=== PATIENT | male | born 1980 | race Caucasian/White ===

== ENCOUNTER 2020-09-02 16:19 | Emergency (ER) | payer OTHER ==
[~2020-09-02] VITALS: Ht 182.9 cm; Wt 104.3 kg
[~2020-09-02 16:19] MED LIST: AMOXICILLIN500 M1 PO; PROAIR HFA8.5 GM INH; TESSALON PERLE100 MG PO
== END 2020-09-02 19:13 | disposition home or self-care (01) ==
LOC: ED 16:19
DX: N35.911 Unspecified urethral stricture, male, meatal (principal); F17.200 Nicotine dependence, unspecified, uncomplicated
CPT/HCPCS: 51702; 51798; 81001; 99283-25

== ENCOUNTER 2020-11-27 07:24 | Emergency (ER) | payer OTHER ==
[~2020-11-27] VITALS: Ht 182.9 cm; Wt 104.3 kg
[2020-11-27] MEDS ORDERED: CELEXA10 MG PO (07:50)
[2020-11-27] MEDS ORDERED: TRAZODONE HCL50 MG (07:52)
== END 2020-11-27 08:46 | disposition home or self-care (01) ==
LOC: ED 07:24
DX: T65.891A Toxic effect of other specified substances, accidental (unintentional), initial encounter (principal); F17.200 Nicotine dependence, unspecified, uncomplicated; Z79.899 Other long term (current) drug therapy
CPT/HCPCS: 99282

== ENCOUNTER 2020-12-06 21:40 | Emergency (ER) | payer OTHER ==
[~2020-12-06] VITALS: Ht 182.9 cm; Wt 104.3 kg
[~2020-12-06 21:40] MED LIST changes: +CELEXA10 MG PO; +TRAZODONE HCL50 MG
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
== END 2020-12-07 01:31 | disposition home or self-care (01) ==
LOC: ED 21:40
DX: S39.012A Strain of muscle, fascia and tendon of lower back, initial encounter (principal); S16.1XXA Strain of muscle, fascia and tendon at neck level, initial encounter; S29.012A Strain of muscle and tendon of back wall of thorax, initial encounter; V49.50XA Passenger injured in collision with unspecified motor vehicles in traffic accident, initial encounter; F17.200 Nicotine dependence, unspecified, uncomplicated; Z79.899 Other long term (current) drug therapy
CPT/HCPCS: 72125; 72128; 72131; 96372; 99284-25; J1885

== ENCOUNTER 2021-06-23 03:26 | Emergency (ER) | payer OTHER ==
[~2021-06-23] VITALS: Ht 182.9 cm; Wt 104.6 kg
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
== END 2021-06-23 04:11 | disposition home or self-care (01) ==
LOC: ED 03:26
DX: K62.5 Hemorrhage of anus and rectum (principal); G47.00 Insomnia, unspecified; F17.200 Nicotine dependence, unspecified, uncomplicated
CPT/HCPCS: 99283

== ENCOUNTER 2022-02-27 01:03 | Emergency (ER) | payer OTHER ==
[~2022-02-27] VITALS: Ht 182.9 cm; Wt 102.1 kg
--- OUTSIDE RECORDS SUMMARY | 2022-02-27 01:06 | XMS ---
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 - Patient with suicidal and/or homicidal ideations eloped. - Patient eloped with IV in place. Details: PATIENT LWBS CRITERIA MET - Group Notification CARE PROVIDERS ROQUE DAVIES Physician Current PHONE: [phone] Care Guidelines exist for the following facilities: [facility] ( 11/20/2018 ) Justine VISIT COUNT (12 MO.) [facility] [address] TOTAL 8 NOTE: Visits indicate total known visits. ED/UCC VISIT TRACKING (12 MO.) 02/27/2022 01:04 [facility] [place] TYPE: Emergency COMPLAINT: - CANT URINATE 09/30/2021 09:37 [facility] [place] TYPE: Emergency COMPLAINT: - L RING FINGER SWOLLEN 09/29/2021 16:52 [facility] [place] TYPE: Emergency COMPLAINT: - SKIN PROBLEM 08/27/2021 08:44 [facility] [place] TYPE: Emergency DIAGNOSES: - Nondisplaced fracture of right radial styloid process, subsequent encounter for closed fracture with routine healing - LEFT ARM AND WRIST RECHECK 08/20/2021 15:28 [facility] [place] TYPE: Emergency DIAGNOSES: - Nondisplaced fracture of right radial styloid process, initial encounter for closed fracture - Fall (on) (from) other stairs and steps, initial encounter - PAIN LEFT SIDE HEAD RADIATES DOWN TO HIP 06/23/2021 03:28 [facility] [place] TYPE: Emergency COMPLAINT: - RECTAL BLEEDING DIAGNOSES: - Hemorrhage of anus and rectum - Nicotine dependence, unspecified, uncomplicated - Insomnia, unspecified 04/04/2021 11:36 [facility] [place] TYPE: Emergency DIAGNOSES: - R INDEX FINGER INJURY - Laceration with foreign body of right index finger without damage to nail, initial encounter 03/31/2021 11:23 [facility] [place] TYPE: Emergency DIAGNOSES: - Toxic effect of venom of other arthropod, accidental (unintentional), initial encounter - RASH INPATIENT VISIT TRACKING (12 MO.) No inpatient visits to display in this time frame [id number]
[2022-02-27] MEDS ORDERED: FLOMAX0.4 MG PO (03:07)
== END 2022-02-27 03:35 | disposition home or self-care (01) ==
LOC: ED 01:03
DX: R39.11 Hesitancy of micturition (principal); F17.200 Nicotine dependence, unspecified, uncomplicated
CPT/HCPCS: 51798; 81001; 99283-25

== ENCOUNTER 2022-04-22 17:14 | Emergency (ER) | payer OTHER ==
[~2022-04-22] VITALS: Ht 182.9 cm; Wt 106.8 kg
[~2022-04-22 17:14] MED LIST changes: +FLOMAX0.4 MG PO
--- OUTSIDE RECORDS SUMMARY | 2022-04-22 17:22 | XMS ---
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 - Patient with suicidal and/or homicidal ideations eloped. - Patient eloped with IV in place. Details: PATIENT LWBS CRITERIA MET - Group Notification CARE PROVIDERS ROQUE DAVIES Physician Current PHONE: [phone] Care Guidelines exist for the following facilities: [facility] ( 11/20/2018 ) Justine VISIT COUNT (12 MO.) [address] TOTAL 7 NOTE: Visits indicate total known visits. ED/UCC VISIT TRACKING (12 MO.) 04/22/2022 17:14 [facility] [place] TYPE: Emergency COMPLAINT: - CHEST PAIN 02/27/2022 01:04 [facility] [place] TYPE: Emergency COMPLAINT: - CANT URINATE DIAGNOSES: - Hesitancy of micturition - Nicotine dependence, unspecified, uncomplicated 09/30/2021 09:37 [facility] [place] TYPE: Emergency COMPLAINT: - L RING FINGER SWOLLEN 09/29/2021 16:52 [facility] [place] TYPE: Emergency COMPLAINT: - SKIN PROBLEM 08/27/2021 08:44 [facility] [place] TYPE: Emergency DIAGNOSES: - LEFT ARM AND WRIST RECHECK - Nondisplaced fracture of right radial styloid process, subsequent encounter for closed fracture with routine healing 08/20/2021 15:28 [facility] [place] TYPE: Emergency DIAGNOSES: - Fall (on) (from) other stairs and steps, initial encounter - PAIN LEFT SIDE HEAD RADIATES DOWN TO HIP - Nondisplaced fracture of right radial styloid process, initial encounter for closed fracture 06/23/2021 03:28 [facility] [place] TYPE: Emergency COMPLAINT: - RECTAL BLEEDING DIAGNOSES: - Nicotine dependence, unspecified, uncomplicated - Insomnia, unspecified - Hemorrhage of anus and rectum INPATIENT VISIT TRACKING (12 MO.) No inpatient visits to display in this time frame [email or web address]
[2022-04-22] MEDS ORDERED: NAPROSYN500 MG PO (19:05)
[2022-04-22] MEDS ORDERED: LIDODERM1 EACH TOP (19:05)
--- NOTE | 2022-04-24 06:57 | EKG ---
[facility] [address] [place], [place] [address] Signed Normal sinus rhythm Normal ECG When compared with ECG of 22-APR-2022 17:22, (Unconfirmed) No significant change was found Confirmed by KAMLA STEVENSON MD ([id number]) on 04/24/2022 6:57:15 AM Electronically Signed By: KAMLA STEVENSON MD 04/24/22 0657 PATIENT NAME: ROSE MARIE HART Electrocardiogram DATE OF : 78 PHYSICIAN: KAMLA STEVENSON MD REPORT #: [id number] REPORT IS CONFIDENTIAL AND NOT TO BE RELEASED WITHOUT AUTHORIZATION
== END 2022-04-22 19:52 | disposition home or self-care (01) ==
LOC: ED 17:14
DX: R07.89 Other chest pain (principal); F17.200 Nicotine dependence, unspecified, uncomplicated
CPT/HCPCS: 36415; 71045; 80053; 83735; 84484; 85025; 93005; 93010; 96374; 99285-25; J1885